=== PATIENT | female | born 1975 | race Caucasian/White ===

== ENCOUNTER 2018-05-07 19:30 | Emergency (ER) | payer OTHER, MEDICAID ==
[~2018-05-07] VITALS: Ht 152.4 cm; Wt 74.8 kg
[~2018-05-07 19:30] MED LIST: ACETAMINOPHEN-1 EAC1; ATIVAN0.5 MG PO; CLEOCIN HCL300 MG PO; CLONAZEPAM; CLONAZEPAM 1 MG1 M1; FLEXERIL PO; KEFLEX500 MG PO; LEVOTHYROXINE0.05 MG PO; LICE TREATMENT118 ML TP; NAPROSYN500 MG PO; NEURONTIN 300300 M1; NORCO 5-325 TA1 EACH PO; NORFLEX100 MG; PROMETHAZINE HC25 M2; PROZAC40 MG; TRAMADOL 50 MG50 MG PO; ULTRAM 50MG TAB50 MG PO; ZANAFLEX4 M1; ZANTAC 150MG T150 M1; ZPAK PO
[2018-05-07 19:34] VITALS: BP 134/84
[2018-05-07] MEDS ORDERED: NORCO 5-325 TA1 EAC1 PO (19:48)
[2018-05-07] MEDS ORDERED: CLEOCIN HCL300 MG PO (19:48)
== END 2018-05-07 20:00 | disposition home or self-care (01) ==
LOC: M.ERS 19:30
DX: K02.9 Dental caries, unspecified (principal); H92.01 Otalgia, right ear; I10 Essential (primary) hypertension; Z90.710 Acquired absence of both cervix and uterus; Z88.0 Allergy status to penicillin; Z88.6 Allergy status to analgesic agent; Z88.8 Allergy status to other drugs, medicaments and biological substances